=== PATIENT | male | born 1960 | race African-American/Black ===

== ENCOUNTER 2016-06-06 11:25 | Emergency (ER) | payer OTHER ==
[~2016-06-06] VITALS: Ht 180.3 cm; Wt 90.1 kg
[2016-06-06 11:25] VITALS: TEMP 98.2; Ht 180.3 cm; Wt 90.1 kg
--- NOTE | 2016-06-06 11:47 | NUR ---
RETURNED FROM CT
--- NOTE | 2016-06-06 12:02 | DI ---
Indication: ITS.REASON: CONFUSION, NOT ANSWERING QUESTIONS PROCEDURE: CT HEAD W/O CONTRAST: Encounter: Initial Comparison: None Technique: Axial CT images through the head were performed without contrast. Iterative Reconstruction dose reducing technique was utilized. FINDINGS: There is a large amount of vasogenic edema seen throughout both frontal lobes. There is an irregular heterogeneous probable mass seen crossing the midline measuring up to 5.4 cm in diameter on axial image #29. This is causing mass effect upon the anterior aspect of both lateral ventricles and mild be causing slight effacement of the suprasellar cistern. There is no significant overall midline shift however. No acute intracranial hemorrhage or obvious territorial stroke identified. The temporal, parietal and occipital lobes appear normal as does the cerebellum. No calvarial fracture seen. The paranasal sinuses are clear. Impression: Severe vasogenic edema in the frontal lobes with evidence of a mass that appears to be crossing the midline. 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 Differential considerations include metastatic disease, lymphoma and potentially cerebral abscess. Recommend contrast enhanced MRI for further evaluation. Neurosurgical and oncology/radiation oncology consultation may also be helpful. Findings were discussed with the emergency room physician Dr. Traore at 1153 on June 06, 2016 .
--- NOTE | 2016-06-06 12:22 | ERPDOC ---
Departure Disposition Decision Date: June 06, 2016 Disposition Decision Time: 15:29 Disposition: 02 TO [facility] Impression Impression Impression: Primary Impression: GBM (glioblastoma multiforme) Severity: Severe Condition: Stable Seen By: Physician only Problems/Meds/Labs Reviewed?: Yes Medications reviewed and manag: Yes Follow up care ordered?: Yes Mental Status: Alert, Occasionally Confused Critical Care Note Total Time (mins): 90 Critical Care Spent: [id number] care of pt, Reviewing test results, Discuss the case w/staff, Documenting the MR, Discussion w/ family/DPOA During this visit the pt was: Critically Ill, At Risk of Deterioration HPI - CVA/Neuro General Chief Complaint: Neuro Symptoms/Deficits Stated Complaint: NOT FEELING WELL, SLIGHTLY DISORIENTED Time Seen by Provider: 12:21 Source: patient Exam Limitations: no limitations HPI - CVA/NEURO Initial Comments 56yo man presented to the ER by EMS for funny feeling/inappropriate responses. Pt has not felt well for the last 3 days; has been making inappropriate responses during that time. Has never had sx like this before. Pt is an OTR dangelo from [facility]; his tractor broke down here and he has been staying at the local truck stop while awaiting its repair. While discussing repairs with the shop today, the shop asked if pt needed help; he informed them that he needed medical care. The shop called EMS for pt. Occurred At: other Onset/Timing: Rapid, Getting worse Duration: other Severity: moderate Associated Symptoms: confusion, other Hx of Similar Symptoms: No Affected Areas/Deficit Locatio: Alertness Modifying Factors: Rest Allergies: Coded Allergies: No Known Allergies (Unverified , 06/06/16) Past History Unable to Obtain PMH Due to: clinical condition Past Medical History Pt denies signifigant PMH Review of Systems Unable to Obtain ROS Due to: clinical condition Neurological General: headache, other, DENIES: dysarthria, seizures All other Systems All Other Systems: Reviewed and Negative Physical Exam General General Nourishment: well nourished, well developed, appears stated age, no acute distress, adult General Body Habitus: well groomed Vitals and Pain First Documented Vital Signs Date Time Temp Pulse Resp B/P Pulse Ox O2 Delivery O2 Flow Rate FiO2 06/06/16 11:25 98.2 62 18 119/65 100 Room Air Weight: Kilograms: 90.100 Height (feet): 5 Height (inches): 11.00 Triage Pain Scale: RN VS reviewed by Provider: Yes Normal Exams: Head: Normocephalic w/o trauma Eyes: Pupils are PERRLA w/ EOMI, No scleral icterus, irritation ENMT: No facial trauma, nasal exudates, pharyngeal erythema Neck: Full range of motion, without adenopathy, JVD Chest/Resp: Clear all flynn, with good airflow CV: Regular rate and rhythm, without murmur or gallop Abdomen: Bowel sounds positive, soft, non-tender Lymphatic: No lymphadenopathy Musculoskeletal: No tenderness, or deformity noted Integumentary: No rashes, hives, or bruising noted Neurologic: Patient is alert, and oriented Psychiatric: Patient exhibits, appropriate attention Differential Diagnoses Considering: Thrombotic CVA, Hemorrhagic CVA, Drug Overdose, Encephalitis, Hypo /hypercalcemia, Hypo/hyperglycemia, Hypo/hypernatremia, Medication Effect, TIA Progress Results/Orders Orders Procedure Category Date Status Time Ct Head W/O Contrast CT 06/06/16 Resulted 11:38 Dexamethasone Inj PHA 06/06/16 Complete (Decadron) 14:15 Dexamethasone Inj PHA 06/06/16 Complete (Decadron) 14:30 Cbc W/Auto LAB 06/06/16 Complete Diff-Reflex Manual Cmp - Comprehensive LAB 06/06/16 Complete Metabolic Lab Results Laboratory Tests Test 06/06/16 11:41 White Blood Count 5.2T/MM3 Red Blood Count 5.95M/MM3 Hemoglobin 14.0GM/DL Hematocrit 42.5% Mean Corpuscular Volume 71.4UM3 Mean Corpuscular Hemoglobin 23.5UUG Mean Corpuscular Hemoglobin Concent 32.9GM/DL RDW Standard Deviation 38.8FL Platelet Count 181T/MM3 Mean Platelet Volume 11.2UM3 Immature Granulocyte % (Auto) 0.0% Neutrophils (%) (Auto) 57.0% Lymphocytes (%) (Auto) 32.4% Monocytes (%) (Auto) 9.6% Eosinophils (%) (Auto) 0.8% Basophils (%) (Auto) 0.2% Absolute Immature Granulocyte (auto 0.00T/MM3 Absolute Neutrophils (auto) 3.0T/MM3 Absolute Lymphocytes (auto) 1.7T/MM3 Absolute Monocytes (auto) 0.5T/MM3 Absolute Eosinophils (auto) 0.0T/MM3 Absolute Basophils (auto) 0.0T/MM3 Turbidity < 20 Sodium Level 142MEQ/L Potassium Level 4.0MEQ/L Chloride Level 99MEQ/L Carbon Dioxide Level 27MEQ/L Anion Gap 16MEQ/L Blood Urea Nitrogen 17.0MG/DL Creatinine 1.0MG/DL Glomerular Filtration Rate Calc 78 BUN/Creatinine Ratio 17RATIO Glucose Level 128MG/DL Calculated Osmolality 277MOSM/KG Calcium Level 10.2MG/DL Total Bilirubin 2.40MG/DL Icterus Index < 2 Aspartate Amino Transf (AST/SGOT) 59U/L Alanine Aminotransferase (ALT/SGPT) 73U/L Alkaline Phosphatase 69U/L Total Protein 7.9G/DL Albumin 4.6G/DL Globulin 3.3G/DL Albumin/Globulin Ratio 1.4RATIO Chemistry Specimen Hemolysis < 15 Medications Current ED Medications Dexamethasone Sodium Phosphate (Decadron) 8 mg O ONCE IM ; Start 06/06/16 at 14: 15; Stop 06/06/16 at 14:16; Status DC Dexamethasone Sodium Phosphate (Decadron) 8 mg O ONCE IV Last administered on 06/06/16t 14:29; Start 06/06/16 at 14:30; Stop 06/06/16 at 14:31; Status DC Progress Progress Pt presented to the ER in the midst of resuscitating a septic pt. Ordered head CT based on pts sx, suspicious for CVA. Discussed findings with radiologist. Initially discussed urgent [place], to be with family. Unable to arrange txfr and , after initial discussions of taking pt, is not able to retrieve pt in timely manner. After discussion with oncologist, neurosurgeon, and neurointensivist, will txfr to [place] for further eval/treatment/txfr as appropriate. Discussed dx, prognosis, and tx with pt who voiced understanding. Consult/PCP Consult/PCP #1: Physician Contacted: Social Work Time Called: 12:22 Type of discussion: Phone Consult/PCP Discussion Details Initially discussed [place]fr to [place] with . Later called back and told NRS that she could not travel due to lack of funds. Consult/PCP #2: Physician Contacted: Anay Kapoor Time Called: 14:39 Time of first response: 14:39 Type of discussion: Phone Consult/PCP Discussion Details Discussed case and necessary workup. Ms. Kapoor discussed case with Dr. Boyer - recommends discussion with Neurosurg and not giving any more steroids. Consult/PCP #3: Physician Contacted: Dr. Boyer Time Called: 14:50 Time of first response: 14:50 Type of discussion: Phone Consult/PCP Discussion Details Discussed case with Dr. Boyer - ddx includes lymphoma; if pt is treated with steroids, can mask/alter dx of lymphoma. Recommends discussing with neurosurg and likely txfr to facility in [place] to expedite work up prior to txfr to another locale, [facility] or otherwise. Consult/PCP #4: Physician Contacted: Dr. Jaeger Time Called: 15:05 Time of first response: 15:05 Type of discussion: Phone Consult/PCP Discussion Details Discussed case with Dr. Jaeger - agreed with txfr to facility in [place] for workup and stabilization. Requests call to Neuro ICU for admission and referral to Dr. Jaeger. Consult/PCP #5: Physician Contacted: Dr. Schwarz Time Called: 15:20 Time of first response: 15:20 Type of discussion: Admit Discussion/PCP Discussion Details Discussed case with Dr. Schwarz; accepted pt for txfr to [facility] for work up/ stabilization. 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
[2016-06-06] MEDS ORDERED: DEXAMETHASONE 4mg/ml - 1ml INJECTION IM ONE (14:15)
[2016-06-06] MEDS ORDERED: DEXAMETHASONE 4mg/ml - 1ml INJECTION IV ONE (14:30)
--- NOTE | 2016-06-06 15:01 | NUR ---
LUIS THIS WORKER MET WITH PT BRIEFLY IN ROOM. PT WAS LAYING IN BED AT THIS TIME. AFTER CONSULTING WITH THIS WORKER CALLED AND SPOKE WITH BY PHONE. REPORTED THAT SHE HAD SPOKEN WITH DOCTOR EARLIER AND KNEW THAT THE PROGNOSIS WAS POOR. REPORTED THAT SHE WOULD PLAN TO DRIVE TO THE HOSPITAL TO COME AND GET PT. REPORTED THAT SHE WOULD POSSIBLY STAY THE N[place] IN [place] AND THEN DRIVE BACK TO [place] ON 06/07/16. WAS PLANNING TO CONTACT THE [place] THAT THE PT WAS STAYING. THIS WORKER OFFERED ASSISTANCE WITH THIS PROCESS. DECLINED. EXPLAINED THAT SHE WOULD LIKE TO VISIT WITH THE DOCTOR WHEN SHE ARRIVES. UPDATE TO ED DOCTOR ON THIS DATE. Addendum: 06/06/16 at 1507 by NINFA ALICEA Amended: Links added.
[2016-06-06 15:04] LABS: BASOPHILS % (AUTO) 0.2 % (0-2); EOSINOPHILS % (AUTO) 0.8 % (0-4); HCT - HEMATOCRIT 42.5 % (41-53); LYMPHOCYTES # (AUTO) 1.7 T/MM3 (1-4.8); LYMPHOCYTES % (AUTO) 32.4 % (23-45); MEAN CORPUSCULAR HGB 23.5 UUG (26-34); MEAN CORPUSCULAR HGB CONC(MCHC 32.9 GM/DL (31-37); MEAN CORPUSCULAR VOLUME 71.4 UM3 (80-100); MEAN PLATELET VOLUME 11.2 UM3 (9.4-12.4); MONOCYTES # (AUTO) 0.5 T/MM3 (0-0.8); MONOCYTES % (AUTO) 9.6 % (0-9.0); RED BLOOD COUNT 5.95 M/MM3 (4.50-5.90); WBC - WHITE BLOOD COUNT 5.2 T/MM3 (4.5-11.0)
[2016-06-06 15:10] LABS: ALBUMIN 4.6 G/DL (3.5-5.0); ALBUMIN/GLOBULIN RATIO 1.4 RATIO (1.1-2.2); ALKALINE PHOSPHATASE 69 U/L (38-126); ALT (SGPT) 73 U/L (21-72); ANION GAP 16 MEQ/L (5-15); AST (SGOT) 59 U/L (17-59); BUN/CREATININE RATIO 17 RATIO (6-26); CALCIUM 10.2 MG/DL (8.4-10.2); CHLORIDE 99 MEQ/L (98-107); CO2 - CARBON DIOXIDE 27 MEQ/L (22-30); GLOMERULAR FILTRATION RATE 78; GLUCOSE 128 MG/DL (75-110); SODIUM 142 MEQ/L (134-144); TOTAL PROTEIN 7.9 G/DL (6.3-8.2)
--- NOTE | 2016-06-06 15:36 | NUR ---
TRANSFER CALLED [facility]IA [facility] TRANSFER LINE FOR BED ASSIGNMENT. REQUESTING FACESHEET AND WILL CALL BACK WITH BED ASSIGNMENT.
--- NOTE | 2016-06-06 15:38 | NUR ---
FACE SHEET FACE SHEET FAXED TO [facility] [phone].
--- NOTE | 2016-06-06 16:48 | NUR ---
REPORT REPORT CALLED TO YANG CONTI, [facility]O [facility].
--- NOTE | 2016-06-06 16:53 | NUR ---
TRANSPORTATION 911 CALLED FOR STAT TRANSPORT TO [facility].
--- NOTE | 2016-06-06 17:00 | NUR ---
[facility] ARRIVED. REPORT GIVEN TO [facility] [employer].
[2016-06-06 17:15] VITALS: BP 119/73; PULSE 70; RESP 16; O2SAT 99
--- NOTE | 2016-06-06 17:18 | NUR ---
TRANSFER PATIENT DEPARTED ED WITH [facility].
== END 2016-06-06 17:18 | disposition short-term general hospital (02) ==
LOC: ED 11:25
DX: C71.8 Malignant neoplasm of overlapping sites of brain (principal)
CPT/HCPCS: 70450; 80053; 85025; 96374; 99285; J1100